=== PATIENT | male | born 1980 | race Caucasian/White ===

== ENCOUNTER 2022-05-08 14:50 | Emergency (ER) | payer OTHER ==
[~2022-05-08] VITALS: Ht 180.3 cm; Wt 103.5 kg
[2022-05-08 14:52] VITALS: BP 136/80
[2022-05-08] MEDS ORDERED: WELLTAB40 (15:01)
[2022-05-08] MEDS ORDERED: MINO100C4 (15:01)
[2022-05-08] MEDS ORDERED: KETOROLAC 30 MG/ML 1ML VIAL IM ONE (17:55)
[2022-05-08] MEDS ORDERED: LIDOCAINE 5% (LIDODERM) PATCH TD ONE (17:55)
[2022-05-08] MEDS ORDERED: **NOTE PATIENT COMMENT** MISC XX SCH (21:00)
== END 2022-05-08 19:27 | disposition home or self-care (01) ==
LOC: M ED 14:50
DX: M76.11 Psoas tendinitis, right hip (principal); Z79.811 Long term (current) use of aromatase inhibitors; Z79.2 Long term (current) use of antibiotics
CPT/HCPCS: 73502; 96372; 99282; J1885

== ENCOUNTER → 2023-02-10 | Outpatient (REF) | payer OTHER ==
[~2023-02-10] MED LIST: MINO100C4; WELLTAB40
[2023-02-10 17:58] LABS: SEMEN APPEARANCE OPAQUE (OPAQUE); SEMEN VISCOSITY VISCOUS (LIQUID); SEMEN pH 8.5 (7.0-8.0)
[2023-02-10 17:59] LABS: SEMEN WBC <=1 M/ml (<=1 M/ml)
== END ==
LOC: M LAB REF 16:54
DX: Z31.41 Encounter for fertility testing (principal)